=== PATIENT | female | born 1975 ===

== ENCOUNTER 2017-10-05 13:08 | Emergency (ER) | payer MEDICAID ==
[2017-10-05 13:17] VITALS: RESP 18; O2SAT 100
[2017-10-05] MEDS ORDERED: Sodium Chloride 0.9% 1,000 ML IV ONE (14:42)
[2017-10-05 15:42] LABS: BASO # 0.1 K/uL (0.0-0.2); BASO % 0.8 % (0.0-2.0); EOS % 0.2 % (0.0-4.0); HEMOGLOBIN 12.8 g/dL (11.0-16.0); LYMPH # 1.6 K/uL (1.0-4.3); LYMPH % 22.3 % (20.0-40.0); MEAN CELL VOLUME 86.6 fL (81.0-99.0); MEAN CORPUSCULAR HEMOGLOBIN 29.6 pg (27.0-31.0); MEAN CORPUSCULAR HGB CONC 34.2 g/dL (33.0-37.0); MEAN PLATELET VOLUME 9.3 fL (7.2-11.7); MONO # 0.5 K/uL (0.0-0.8); MONO % 6.5 % (0.0-10.0); NEUT # 5.1 K/uL (1.8-7.0); NEUT % 70.2 % (50.0-75.0); RBC 4.31 Mil/uL (3.80-5.20); RED CELL DISTRIBUTION WIDTH 13.7 % (11.5-14.5); WHITE BLOOD COUNT 7.2 K/uL (4.8-10.8)
[2017-10-05 15:43] VITALS: BP 113/74; PULSE 77; TEMP 97.7
[2017-10-05 15:51] LABS: ALB/GLOB RATIO 1.1 (1.0-2.1); ALBUMIN 3.8 g/dL (3.5-5.0); ALT/SGPT 25 U/L (9-52); AST/SGOT 21 U/L (14-36); BLOOD UREA NITROGEN 11 mg/dL (7-17); CALCIUM 8.6 mg/dl (8.6-10.4); GFR AFRICAN-AMERICAN > 60; GFR NON-AFRICAN AMERICAN > 60
[2017-10-05 15:52] LABS: INR 1.1; PROTHROMBIN TIME 12.2 SECONDS (9.7-12.2)
[2017-10-05 16:33] LABS: HCG,QUALITATIVE URINE NEGATIVE (NEGATIVE)
[2017-10-05 16:38] LABS: SQUAMOUS EPITHIAL 1 /hpf (0-5); URINE BILIRUBIN NEGATIVE (NEGATIVE); URINE BLOOD 3+ (NEGATIVE); URINE CALCIUM OXALATE CRYSTALS OCC /hpf (<OCC); URINE CLARITY Clear (Clear); URINE COLOR Yellow (YELLOW); URINE GLUCOSE (UA) NORMAL (Normal); URINE LEUKOCYTE ESTERASE NEG Leu/uL (Negative); URINE NITRATE NEGATIVE (NEGATIVE); URINE PROTEIN NEGATIVE (NEGATIVE); URINE UROBILINOGEN NORMAL mg/dL (0.2-1.0)
--- NOTE | 2017-10-05 16:41 | C.PDOC ---
History Of Present Illness <Jade Piña - Last Filed: 10/05/17 17:47> <Johann Galvin M - Last Filed: 10/05/17 18:23> 41 yo female c/o heavy menstruation for 5 days. Pt notes she didnt have her menses for 6-7 month. Notes she used over 5 pads this morning. (+) "a little dizzy" . Denies any abdominal / pelvic pain, vaginal discharge, syncope, chest pain, visual changes, headache, or n/v. Pt notes she was usually had regular menses (Jade Piña) History Per: Patient History/Exam Limitations: no limitations Onset/Duration Of Symptoms: Days Current Symptoms Are (Timing): Still Present <Jade Piña - Last Filed: 10/05/17 17:47> <Johann Galvin M - Last Filed: 10/05/17 18:23> Time Seen by Provider: 10/05/17 14:26 Chief Complaint (Nursing): Female Genitourinary Past Medical History Family History: States: Unknown Family Hx - Social History Hx Alcohol Use: No Hx Substance Use: No - Immunization History Hx Tetanus Toxoid Vaccination: No Hx Influenza Vaccination: No Hx Pneumococcal Vaccination: No <Jade Piña - Last Filed: 10/05/17 17:47> Vital Signs: Last Vital Signs Temp 97.7 F 10/05/17 15:42 Pulse 77 10/05/17 15:42 Resp 18 10/05/17 15:42 BP 113/74 10/05/17 15:42 Pulse Ox 100 10/05/17 18:12 Review Of Systems Except As Marked, All Systems Reviewed And Found Negative. Genitourinary: Positive for: Vaginal Bleeding <Jade Piña - Last Filed: 10/05/17 17:47> Physical Exam - Physical Exam Appears: Well, Non-toxic, No Acute Distress Skin: Normal Color, Warm, Dry Head: Atraumatic, Normacephalic Eye(s): bilateral: Normal Inspection, PERRL, EOMI Nose: Normal Oral Mucosa: Moist Neck: Normal, Normal ROM, Supple Chest: Symmetrical Cardiovascular: Rhythm Regular Respiratory: Normal Breath Sounds Gastrointestinal/Abdominal: Normal Exam, Soft, No Tenderness Back: Normal Inspection Extremity: Normal ROM Neurological/Psych: Oriented x3, Normal Speech <Jade Piña - Last Filed: 10/05/17 17:47> ED Course And Treatment - Laboratory Results Result Diagrams: 10/05/17 15:34 10/05/17 15:34 O2 Sat by Pulse Oximetry: 100 Progress Note: Case discussed with Dr North, who suggests Provera 10mg x 10 days for Iron supp for 30 days. Pt was instructed to follow up with her [facility] in 1-2 days or return to ER if symtpoms persist or worsen. <Jade Piña - Last Filed: 10/05/17 17:47> - Laboratory Results Result Diagrams: 10/05/17 15:34 10/05/17 15:34 <Johann Galvin - Last Filed: 10/05/17 18:23> Disposition - Disposition Disposition Time: 16:54 <Jade Piña - Last Filed: 10/05/17 17:47> <Johann Galvin - Last Filed: 10/05/17 18:23> - Disposition Disposition: HOME/ ROUTINE Condition: STABLE Additional Instructions: Follow up with your primary medical doctor or clinic in 2-5 days for further evaluation. Take medications as prescribed. Return to the emergency department at any time if symptoms persist or worsen. Prescriptions: Ferrous Sulfate [Feosol] 325 mg PO DAILY #30 tab MedroxyPROGESTERone [Provera] 1 tab PO DAILY #10 tab Instructions: Heavy Periods (DC) Forms: ticketscript (Tajik) Print Language: JAMAICAN - Clinical Impression Clinical Impression: Menorrhagia
== END 2017-10-05 17:18 | disposition home or self-care (01) ==
LOC: C.ER 13:08
DX: N92.0 Excessive and frequent menstruation with regular cycle (principal)
CPT/HCPCS: 80053; 81001; 84703; 85025; 85610; 85730; 96360; 99284; J7040